=== PATIENT | male | born 1965 | race Caucasian/White ===

== ENCOUNTER 2019-07-11 10:33 | Emergency (ER) | payer BC, OTHER ==
[2019-07-11 12:36] VITALS: O2SAT 99
[2019-07-11 12:38] VITALS: BP 116/76; TEMP 98.4
== END 2019-07-11 12:29 | disposition home or self-care (01) ==
LOC: ER 10:33
DX: J06.9 Acute upper respiratory infection, unspecified (principal); Z72.0 Tobacco use; Z71.6 Tobacco abuse counseling; I10 Essential (primary) hypertension; Z03.818 Encounter for observation for suspected exposure to other biological agents ruled out
CPT/HCPCS: 87070; 87081; 87804 ×2; 71045; 99284; U0001